=== PATIENT | male | born 2000 | race Caucasian/White ===

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

== ENCOUNTER 2022-03-28 23:29 | Emergency (ER) | payer MEDICAID ==
[~2022-03-28] VITALS: Ht 175.3 cm; Wt 70.3 kg
[2022-03-28 23:33] VITALS: BP_SYST 153
[2022-03-29] MEDS ORDERED: KETOROLAC TROMETHAMINE 60 MG/2 ML VIAL IM ONE
[2022-03-29] MEDS ORDERED: cefTRIAXone 0.75 GM in LIDOCAINE 1%, 20 ML MDV 2.1 ML IM ONE (01:00)
[2022-03-29] MEDS ORDERED: IBUP-1971 PO (01:31)
[2022-03-29] MEDS ORDERED: DOXY100C PO (01:31)
[2022-03-29 01:46] LABS: BILIRUBIN,URINE NEGATIVE (NEGATIVE); BLOOD, URINE NEGATIVE (NEGATIVE); CLARITY/URINE CLEAR (CLEAR); COLOR,URINE YELLOW (YELLOW); GLUCOSE,URINE NEGATIVE (NEGATIVE); KETONES,URINE NEGATIVE (NEGATIVE); LEUKOCYTE ESTERASE ,URINE NEGATIVE (NEGATIVE); NITRITE, URINE NEGATIVE (NEGATIVE); PROTEIN URINE NEGATIVE (NEGATIVE); UROBILINOGEN,URINE 0.2 (0.2-1.0)
[2022-03-29 02:10] VITALS: BP_SYST 140
== END 2022-03-29 02:10 | disposition home or self-care (01) ==
LOC: SED 23:29
DX: N45.1 Epididymitis (principal); N50.811 Right testicular pain; N50.82 Scrotal pain; R03.0 Elevated blood-pressure reading, without diagnosis of hypertension; Z79.899 Other long term (current) drug therapy
CPT/HCPCS: 99284; 76870; 81003; 96372; J0696; J1885; J2001